=== PATIENT | female | born 1940 | race Caucasian/White ===

== ENCOUNTER 2017-08-12 16:49 | Emergency (ER) | payer MEDICARE, BC ==
[2017-08-12] MEDS ORDERED: Sodium Chloride 0.9% 10 ML Syringe FLUSH PRN (16:53)
--- NOTE | 2017-08-12 16:55 | EDM.PDOC ---
ED HPI GENERAL MEDICAL PROBLEM - General Chief Complaint: General Stated Complaint: LIGHT HEADED, PASSED OUT Time Seen by Provider: 08/12/17 16:53 Source of Information: Reports: Patient, EMS History Limitations: Reports: No Limitations - History of Present Illness INITIAL COMMENTS - FREE TEXT/NARRATIVE: [place] and went to stand up and had a syncopal episode. Denies hitting her head; she states she has no chest pain, pressure or shortness of breath. Hx of VT with ablation years ago; no problems since. Onset: Sudden - Related Data Allergies Allergy/AdvReac Type Severity Reaction Status Date / Time No Known Allergies Allergy Verified 08/12/17 17:12 Home Meds: Home Meds Calcium Carbonate 1 tab PO BID 08/12/17 [History] Cyanocobalamin (Vitamin B-12) [B-12 Dots] 1 tab PO DAILY 08/12/17 [History] Hydrochlorothiazide 1 tab PO DAILY 08/12/17 [History] Levothyroxine 1 tab PO DAILY 08/12/17 [History] Losartan [Cozaar] 1 tab PO DAILY 08/12/17 [History] Pantoprazole [ProTONIX] 1 tab PO DAILY 08/12/17 [History] Verapamil [Calan SR] 1 tab PO BEDTIME 08/12/17 [History] Verapamil [Calan SR] 1 tab PO QAM 08/12/17 [History] Zolpidem [Ambien] 1 tab PO DAILY 08/12/17 [History] atorvaSTATin [Lipitor] 1 tab PO DAILY 08/12/17 [History] valACYclovir HCl [Valacyclovir] 1 tab PO DAILY 08/12/17 [History] ED ROS GENERAL - Review of Systems Review Of Systems: See Below Constitutional: Reports: No Symptoms HEENT: Reports: No Symptoms Respiratory: Reports: No Symptoms Cardiovascular: Reports: No Symptoms GI/Abdominal: Reports: No Symptoms : Reports: No Symptoms Musculoskeletal: Reports: No Symptoms Skin: Reports: No Symptoms Neurological: Reports: Syncope Psychiatric: Reports: No Symptoms ED EXAM, GENERAL - Physical Exam Exam: See Below Exam Limited By: No Limitations General Appearance: Alert, WD/WN, No Apparent Distress Eye Exam: Bilateral Eye: EOMI, PERRL Ears: Normal External Exam, Normal Canal Nose: Normal Inspection Throat/Mouth: Normal Inspection, Normal Oropharynx, No Airway Compromise Head: Atraumatic, Normocephalic Neck: Normal Inspection, Non-Tender, Full Range of Motion Respiratory/Chest: No Respiratory Distress, Lungs Clear, Normal Breath Sounds Cardiovascular: Regular Rate, Rhythm, No Edema GI/Abdominal: Normal Bowel Sounds, Soft Back Exam: Full Range of Motion Extremities: Normal Range of Motion Neurological: Alert, Oriented, CN II-XII Intact, Normal Cognition, Normal Gait Psychiatric: Normal Affect, Normal Mood Skin Exam: Warm, Dry, Intact, Normal Color Course - Vital Signs Last Recorded V/S: Last Vital Signs Temp 97.7 F 08/12/17 17:36 Pulse 80 08/12/17 17:36 Resp 16 08/12/17 17:36 BP 138/73 08/12/17 17:36 Pulse Ox 94 L 08/12/17 17:36 Orthostatic Blood Pressure [ 170/74 Standing] Orthostatic Blood Pressure [ 166/78 Sitting] Orthostatic Blood Pressure [ 142/70 Supine] - Orders/Labs/Meds Orders: Active Orders 24 hr Category Date Time Status Orthostatic Vital Signs [RC] ASDIRECTED Care 08/12/17 16:53 Active Peripheral IV Care [RC] . DIRECTED Care 08/12/17 16:53 Active Head wo Cont [CT] Stat Exams 08/12/17 17:20 Taken UA W/MICROSCOPIC [URIN] Stat Lab 08/12/17 18:37 Ordered Peripheral IV Insertion Adult [OM.PC] Stat Oth 08/12/17 16:53 Ordered Labs: Laboratory Tests 08/12/17 08/12/17 08/12/17 Range/Units 17:11 17:11 18:37 WBC 6.0 (4.5-11.0) K/uL RBC 3.51 (3.30-5.50) M/uL Hgb 12.1 (12.0-15.0) g/dL Hct 36.0 (36.0-48.0) % MCV 103 H (80-98) fL MCH 35 H (27-31) pg MCHC 34 (32-36) % Plt Count 203 (150-400) K/uL Neut % (Auto) 64 (36-66) % Lymph % (Auto) 26 (24-44) % Cannon % (Auto) 9 H (2-6) % Eos % (Auto) 2 (2-4) % Baso % (Auto) 0 (0-1) % Sodium 138 L (140-148) mmol/L Potassium 4.3 (3.6-5.2) mmol/L Chloride 100 (100-108) mmol/L Carbon Dioxide 26 (21-32) mmol/L Anion Gap 16.3 H (5.0-14.0) mmol/L BUN 26 H (7-18) mg/dL Creatinine 1.1 H (0.6-1.0) mg/dL Est Cr Clr Drug Dosing 34.41 mL/min Estimated GFR (MDRD) 48 L (>60) Glucose 89 (74-106) mg/dL Calcium 8.9 (8.5-10.1) mg/dL Total Bilirubin 0.4 (0.2-1.0) mg/dL AST 26 (15-37) U/L ALT 34 (12-78) U/L Alkaline Phosphatase 105 (46-116) U/L Troponin I < 0.017 (0.000-0.056) ng/mL Total Protein 7.0 (6.4-8.2) g/dL Albumin 3.8 (3.4-5.0) g/dL Globulin 3.2 (2.3-3.5) g/dL Albumin/Globulin Ratio 1.2 (1.2-2.2) Urine Color Yellow Urine Appearance Clear Urine pH 7.0 (4.5-8.0) Ur Specific [place] 1.015 (1.008-1.030) Urine Protein Negative (NEGATIVE) mg/dL Urine Glucose (UA) Normal (NEGATIVE) mg/dL Urine Ketones Negative (NEGATIVE) mg/dL Urine Occult Blood Negative (NEGATIVE) Urine Nitrite Negative (NEGATIVE) Urine Bilirubin Negative (NEGATIVE) Urine Urobilinogen Normal (NORMAL) mg/dL Ur Leukocyte Esterase Negative (NEGATIVE) Urine RBC Not seen (0-5) Urine WBC Not seen (0-5) Ur Epithelial Cells Few Amorphous Sediment Not seen Urine Bacteria Rare Urine Mucus Not seen Meds: Medications Discontinued Medications Generic Name Dose Route Start Last Admin Trade Name Freq PRN Reason Stop Dose Admin Sodium Chloride 1,000 mls @ 999 mls/hr 08/12/17 17:00 08/12/17 17:43 Normal Saline IV 999 mls/hr ASDIRECTED JAYSHREE Administration Sodium Chloride 10 ml 08/12/17 16:53 Saline Flush FLUSH ASDIRECTED PRN Keep Vein Open - Re-Assessments/Exams Free Text/Narrative Re-Assessment/Exam: 08/12/17 19:47 CT of head is negative for acute findings Labs are stable She is requesting discharge Departure - Departure Time of Disposition: 18:30 Disposition: Home, Self-Care 01 Condition: Good Clinical Impression: Syncope Qualifiers: Syncope type: heat syncope Encounter type: initial encounter Qualified Code(s) : T67.1XXA - Heat syncope, initial encounter Clinical Impression: (Ruled Out): COPD exacerbation - Discharge Information Instructions: Syncope, [id number] Referrals: PCP,None [Primary Care Provider] - Forms: ED Department Discharge Additional Instructions: Stay hydrated Change positions slowly If you have another episode of fainting, you need to be admitted for further evaluation. - My Orders Last 24 Hours: My Active Orders 08/12/17 16:53 Orthostatic Vital Signs [RC] ASDIRECTED Peripheral IV Care [RC] . DIRECTED Peripheral IV Insertion Adult [OM.PC] Stat 08/12/17 17:20 Head wo Cont [CT] Stat 08/12/17 18:37 UA W/MICROSCOPIC [URIN] Stat - Assessment/Plan Last 24 Hours: My Active Orders 08/12/17 16:53 Orthostatic Vital Signs [RC] ASDIRECTED Peripheral IV Care [RC] . DIRECTED Peripheral IV Insertion Adult [OM.PC] Stat 08/12/17 17:20 Head wo Cont [CT] Stat 08/12/17 18:37 UA W/MICROSCOPIC [URIN] Stat
[2017-08-12] MEDS ORDERED: Sodium Chloride 0.9% 1,000 ML IV SCH (17:00)
== END 2017-08-12 19:08 | disposition home or self-care (01) ==
LOC: JP.ED 16:49
DX: T67.1XXA Heat syncope, initial encounter (principal); Z79.899 Other long term (current) drug therapy
CPT/HCPCS: 36415; 70450; 80053; 81001; 84484; 85025; 96360; 99285; J7030